=== PATIENT | male | born 1960 | race Caucasian/White ===

== ENCOUNTER 2020-07-24 17:35 | Outpatient (CLI) | payer OTHER, SELFPAY | END 2020-07-24 17:36 | disposition home or self-care (01) | LOC: ANHCOVIDVC 17:35 | PROVIDERS: PCP Internal Medicine | DX: Z23 Encounter for immunization (principal) | CPT/HCPCS: 0001A; 91300 ==

== ENCOUNTER 2020-08-14 17:27 | Outpatient (CLI) | payer OTHER, SELFPAY | END 2020-08-14 17:28 | disposition home or self-care (01) | LOC: ANHCOVIDVC 17:27 | PROVIDERS: PCP Internal Medicine | DX: Z23 Encounter for immunization (principal) | CPT/HCPCS: 0002A; 91300 ==

== ENCOUNTER 2021-09-24 01:13 | Day surgery (SDC) | payer OTHER, SELFPAY ==
[2021-07-18 13:09] VITALS: BMI 27.6
--- NOTE | 2021-07-28 12:49 | P.PNAN_ITS ---
Anes - Initial Pre Proc Eval Procedure: Operation Date: 07/30/21 09:00 Proposed Procedures p Screening Colonoscopy - Vince Medrano MD Date/Time: 07/28/21 12:49 Surgeon: Vince Medrano MD Pre Op Diagnosis: hx of colon polyps Patient Data Age: 61 Gender: M Height: 1.8 m Weight: 90 kg Allergies Allergy/AdvReac Type Severity Reaction Status Date / Time meperidine [From Demerol] Allergy Seizure Verified 07/18/21 13:05 Home Medications Medication Instructions Recorded Confirmed Type Vitamin D3 2,000 units PO DAILY 07/18/21 07/18/21 History atorvastatin 80 mg PO DAILY 07/18/21 07/18/21 History lansoprazole 30 mg PO DAILY 07/18/21 07/18/21 History lisinopril 10 mg PO DAILY 07/18/21 07/18/21 History montelukast 10 mg PO DAILY 07/18/21 07/18/21 History Results Review: All pre-operative results and documents have been reviewed as part of the pre-operative evaluation. [facility] [place] Past Medical History Medical History (Updated 07/28/21 @ 12:50 by Fernie Augustine DO) Diverticulitis GERD (gastroesophageal reflux disease) Hyperlipidemia Hypertension Social History Social History Smoking status: Never smoker Alcohol intake: current Alcohol use details: socially Substance use: never Substance use type: does not use Living arrangements: with family Spiritual care concerns: No Anes - Eval Final PreProcedure Day of Procedure 07/28/21 12:49 Patient weight: overweight Heart: regular rate and rhythm Lungs: clear to auscultation and normal air movement Airway: Mallampati scale class II Neurological: alert and oriented Last oral intake: >/= 8 hours ASA classification: II Emergent: no Anesthetic plan: proceed Anesthesia type and monitoring: general GIVS and standard monitoring Results Review: All pre-operative results and documents have been reviewed as part of the pre-operative evaluation. Informed Consent: The patient's anesthetic plan and its attendant risks and benefits were discussed with the patient/family/POA. Questions were solicited and answers provided to the satisfaction of the patient/family/POA.
--- NOTE | 2021-09-11 14:27 | PC.NURSE ---
Spoke with who states that she is angry because patient got sick off of his last bowel prep and she was unable to reach the department on a Friday. Informed patient that GI lab is not opened on weekends and should call the office number for doctor's exchange after hours. She states that the service was messy . Patient is due to take suprep tabs for next prep and instructions are not clear for them. Forwarded call to Darcie to call patients on 09/13/21 at 1430. Informed Irene, GI manager decision support of patient's 's concerns.
[2021-09-13 15:03] VITALS: BMI 27.6
[2021-09-24 09:43] VITALS: BP 146/79; PULSE 65; RESP 20; TEMP 36.3; O2SAT 100; BMI 26.6
[2021-09-24] MEDS: LACTATED RINGERS 1,000 ML 150 ML IV CONT (09:58)
--- NOTE | 2021-09-24 10:02 | WPDANESEPPF ---
Anes - Initial Pre Proc Eval Procedure: Operation Date: 09/24/21 11:00 Proposed Procedures p Screening Colonoscopy - Vince Medrano MD Date/Time: 09/24/21 10:02 Surgeon: Vince Medrano MD Pre Op Diagnosis: hx of colon polyps Patient Data Age: 61 Gender: M Height: 1.8 m Weight: 86.5 kg Last Vital Signs Temp 97.3 F L 09/24/21 09:43 Pulse 65 09/24/21 09:43 Resp 20 09/24/21 09:43 BP 146/79 H 09/24/21 09:43 Pulse Ox 100 09/24/21 09:43 Allergies Allergy/AdvReac Type Severity Reaction Status Date / Time meperidine [From Demerol] Allergy Seizure Verified 09/24/21 09:42 Home Medications Medication Instructions Recorded Confirmed Type Vitamin D3 2,000 units PO DAILY 07/18/21 09/13/21 History atorvastatin 80 mg PO DAILY 07/18/21 09/13/21 History lansoprazole 30 mg PO DAILY 07/18/21 09/13/21 History lisinopril 10 mg PO DAILY 07/18/21 09/13/21 History montelukast 10 mg PO DAILY 07/18/21 09/13/21 History Patient hx anesthesia problems: none Family hx anesthesia problems: none Results Review: All pre-operative results and documents have been reviewed as part of the pre-operative evaluation. [facility] Past Medical History Medical History (Updated 07/28/21 @ 12:50 by Fernie Augustine DO) Diverticulitis GERD (gastroesophageal reflux disease) Hyperlipidemia Hypertension Social History Social History Smoking status: Never smoker Alcohol intake: current Alcohol use details: socially Substance use: never Substance use type: does not use Living arrangements: with family Spiritual care concerns: No Anes - Eval Final PreProcedure Day of Procedure 09/24/21 10:02 Patient weight: overweight Heart: regular rate and rhythm Lungs: clear to auscultation Airway: Mallampati scale class II Neurological: alert and oriented Last oral intake: >/= 8 hours ASA classification: II Emergent: no Anesthetic plan: proceed Anesthesia type and monitoring: general GIVS and standard monitoring Results Review: All pre-operative results and documents have been reviewed as part of the pre-operative evaluation. Informed Consent: The patient's anesthetic plan and its attendant risks and benefits were discussed with the patient/family/POA. Questions were solicited and answers provided to the satisfaction of the patient/family/POA.
--- NOTE | 2021-09-24 10:10 | PM.HPGS ---
History of Present Illness History of Present Illness Consent: Risks, benefits, and alternatives have been discussed and questions answered. Patient agrees to proceed with procedure. Chief complaint: hx of colon polyps Narrative: Acosta Birch is a 61 year old male with colonoscopy more than 10 years ago. Review of Systems Constitutional: Constitutional: Denies headache(s) and Denies weakness Eyes: Eyes: Denies blurry vision ENT: Reports Normal hearing present, Denies headache(s) and Denies neck pain Cardiovascular: Cardiovascular: Denies chest pain and Denies dyspnea Respiratory: Respiratory: Denies dyspnea Gastrointestinal: Gastrointestinal: Reports no additional gastrointestinal complaints Genitourinary: Genitourinary: Denies dysuria Musculoskeletal: Musculoskeletal: Denies neck pain Integumentary/Breasts: Skin/Breast: Denies dry skin Neurologic: Reports Normal hearing present, Denies headache(s) and Denies weakness Psychiatric: Psychiatric: Denies anxiety Endocrine: Endocrine: Denies change in body appearance Hematologic/Lymphatic: Hematologic/Lymphatic: Denies easy bleeding Allergic/Immunologic: Allergic/Immunologic: Denies urticaria PMFSH Past Medical History Medical History (Updated 09/24/21 @ 10:10 by Vince Medrano MD) Colon cancer screening Diverticulitis GERD (gastroesophageal reflux disease) Hyperlipidemia Hypertension Social History Social History Smoking status: Never smoker Alcohol intake: current Alcohol use details: socially Substance use: never Substance use type: does not use Living arrangements: with family Spiritual care concerns: No Meds Home Medications and Allergies Home Medications Medication Instructions Recorded Confirmed Type Vitamin D3 2,000 units PO DAILY 07/18/21 09/13/21 History atorvastatin 80 mg PO DAILY 07/18/21 09/13/21 History lansoprazole 30 mg PO DAILY 07/18/21 09/13/21 History lisinopril 10 mg PO DAILY 07/18/21 09/13/21 History montelukast 10 mg PO DAILY 07/18/21 09/13/21 History Allergies Allergy/AdvReac Type Severity Reaction Status Date / Time meperidine [From Demerol] Allergy Seizure Verified 09/24/21 09:42 Vital Signs Vital Signs - 24 hr 09/24/21 09:43 Temperature 97.3 F L Pulse Rate 65 Respiratory Rate 20 Blood Pressure 146/79 H Pulse Oximetry 100 Exam Const: General: comfortable and no acute distress HENMT: General nose exam: Normal nares present Eyes: General: appearance normal, both eyes and all related structures Neck: Neck: no JVD Resp: Auscultation: clear to auscultation bilaterally Cardio: Rate: regular rate Rhythm: regular rhythm GI: Inspection: non-distended GI Palp: Yes Soft to palpation Skin: General skin exam: normal color Neuro: General: gait normal Speech: normal speech Extrem: General: normal to inspection Psych: Mental Status: mental status grossly normal Assessment and Plan Assessment and plan (1) Colon cancer screening: Code(s): Z12.11 - Encounter for screening for malignant neoplasm of colon Status: Acute Assessment and Plan: colonoscopy
[2021-09-24 10:27] VITALS: BP 105/68; PULSE 63; RESP 16; O2SAT 99
[2021-09-24 10:37] VITALS: BP 130/84; PULSE 58; RESP 12; O2SAT 100
[2021-09-24 10:47] VITALS: BP 132/82; PULSE 57; RESP 18; O2SAT 100
== END 2021-09-24 11:03 | disposition home or self-care (01) ==
PROVIDERS: PCP Internal Medicine; Visit Provider Internal Medicine Gastroenterology
PROC: 0DJD8ZZ Inspection of Lower Intestinal Tract, Via Natural or Artificial Opening Endoscopic (ICD-10-PCS; CPT 45378; principal; 2021-09-24 11:00)
DX: Z12.11 Encounter for screening for malignant neoplasm of colon (principal); D12.2 Benign neoplasm of ascending colon; D12.4 Benign neoplasm of descending colon; K57.30 Diverticulosis of large intestine without perforation or abscess without bleeding; K64.8 Other hemorrhoids; I10 Essential (primary) hypertension; E78.5 Hyperlipidemia, unspecified; K21.9 Gastro-esophageal reflux disease without esophagitis
CPT/HCPCS: 45385; 88305; J2704; J7120

== ENCOUNTER → 2021-12-05 08:11 | Outpatient (CLI) | payer OTHER, SELFPAY ==
--- NOTE | ~2021-12-05 | MR_ITS ---
EXAMINATION: MR shoulder RT wo con DATE: 12/05/2021 08:48 INDICATION: Nontraumatic incomplete tear of the right rotator cuff. One and a half months of right sh oulder pain. TECHNIQUE: Magnetic resonance imaging (MRI) of the right shoulder was performed without intravenous c ontrast. Sequences included axial PD-weighted FS FSE, coronal oblique PD-weighted FS FSE, coronal obl ique T2-weighted FS FSE, sagittal PD-weighted FS FSE, and sagittal T1-weighted SE. COMPARISON: None. FINDINGS: Coracoacromial arch: The acromion undersurface is curved in morphology (type II) with mild anterior downsloping. The corac oacromial ligament is normal. Mild acromioclavicular osteoarthritis. Rotator cuff: Mild tendinopathy of the supraspinatus and anterior infraspinatus tendons without tears. The teres mi nor tendon is normal. Mild subscapularis tendinopathy with partial-thickness intrasubstance tear posi tioned between the portion of the tendon attached to a lesser tuberosity and the more superficial por tion of the tendon which is attached to the intact transverse humeral ligament. The tear extends appr oximately 5 mm medially from the lateral margin of the lesser tuberosity footplate. Biceps tendon, glenoid labrum and glenohumeral cartilage: Moderate tendinopathy of the long head biceps tendon with longitudinal split tear extending in the ex tra articular portion of the tendon at the level the caudal aspect of the intertubercular groove and extending into the intra-articular portion of the tendon. Glenoid labrum is normal. Glenohumeral cart ilage is normal. Fluid: Prominent increased fluid in the long head biceps tendon sheath which is disproportionate to the smal l glenohumeral joint effusion which is suggestive of bicipital tenosynovitis. No loose osteochondral bodies. No abnormal increased fluid signal in the subacromial/subdeltoid bursa to suggest bursitis. Bones: Bone alignment is normal. Normal marrow signal with no fracture or pathologic marrow replacing proces s. IMPRESSION: 1. Mild rotator cuff tendinopathy with small mild intrasubstance tear along the superolateral lesser tuberosity footplate of the subscapularis tendon. 2. Mild bicipital tenosynovitis with moderate tendinopathy and longitudinal split tearing of the long head biceps tendon. 3. Small right glenohumeral joint effusion. Reviewed, dictated and finalized at location A. IMPRESSION: 1. Mild rotator cuff tendinopathy with small mild intrasubstance tear along the superolateral lesser tuberosity footplate of the subscapularis tendon. 2. Mild bicipital tenosynovitis with moderate tendinopathy and longitudinal spl it tearing of the long head biceps tendon. 3. Small right glenohumeral joint effusion.
== END ==
PROVIDERS: PCP Internal Medicine
DX: M75.111 Incomplete rotator cuff tear or rupture of right shoulder, not specified as traumatic (principal); S46.119A Strain of muscle, fascia and tendon of long head of biceps, unspecified arm, initial encounter; X58.XXXA Exposure to other specified factors, initial encounter; M75.21 Bicipital tendinitis, right shoulder; M25.411 Effusion, right shoulder
CPT/HCPCS: 73221

== ENCOUNTER 2022-09-11 14:52 | Outpatient (CLI) | payer OTHER, SELFPAY ==
--- NOTE | 2022-09-11 | ECHO_ITS ---
Patient Info Name: Emir Birch Age: 62 years : 1960 Gender: Male Ht: 71 in Wt: 190 lbs BSA: 2.09 m2 HR: 78 bpm BP: 134 / 96 mmHg Technical Quality: Fair Exam Date: 09/11/2022 3:13 PM Exam Location: [facility] Patient Status: Outpatient Admit Date: 09/11/2022 Staff Ordering Physician: Tacho Henderson MD Attending Provider: Tacho Henderson MD Referring Physician: Katerin MURPHY; Exam Type: CA echo doppler color flow Study Info Indications - PALPITATIONS Complete two-dimensional, color flow and Doppler transthoracic echocardiogram is performed. Summary 1. Complete two-dimensional, color flow and Doppler transthoracic echocardiogram is performed. 2. Left ventricular chamber dimension is normal. 3. Left ventricular systolic function is normal, estimated at 60-65%. 4. The left ventricular diastolic function is normal. 5. The aortic valve is bicuspid. 6. There is moderate aortic valve sclerosis. 7. There is mild aortic valve stenosis with a peak velocity of 285 cm/s, mean gradient of 17 mmHg, and aortic valve area of 1.9 cm2. 8. There is trace aortic valve regurgitation. 9. The mitral valve has mild calcified annulus. 10. No pulmonary hypertension, estimated pulmonary arterial systolic pressure is 26 mmHg. 11. There is trace pulmonic regurgitation. Left Ventricle Left ventricular chamber dimension is normal. Left ventricular systolic function is normal, estimated at 60-65%. The left ventricular diastolic function is normal. Right Ventricle Right ventricular systolic function is normal and with normal TAPSE 2.6 cm. Right ventricular chamber dimension is normal. Left Atria Left atrial chamber dimension is normal. Right Atria Right atrial chamber dimension is normal. Aortic Valve The aortic valve is bicuspid. There is moderate aortic valve sclerosis. There is mild aortic valve stenosis with a peak velocity of 285 cm/s, mean gradient of 17 mmHg, and aortic valve area of 1.9 cm2. There is trace aortic valve regurgitation. Pulmonic Valve There is trace pulmonic regurgitation. Mitral Valve The mitral valve has mild calcified annulus. There is no mitral valve stenosis. There is no mitral valve regurgitation. Tricuspid Valve There is no tricuspid valve regurgitation. No pulmonary hypertension, estimated pulmonary arterial systolic pressure is 26 mmHg. Pericardium/Pleural There is no pericardial effusion. Inferior Vena Cava Normal inferior vena cava with >50% collapse upon inspiration consistent with normal right atrial pressure, 5 mmHg. Aorta The aortic root size at the sinus of Valsalva is normal. Left Ventricular Outflow Tract Name Value Normal LVOT 2D LVOT Diameter 2.1 cm LVOT Doppler LVOT Peak Gradient 8 mmHg LVOT Mean Gradient 5 mmHg LVOT VTI 31 cm LVOT VTI/AV VTI Ratio 0.6 LVOT Stroke Volume 102 ml LVOT CO 21.1 l/min LVOT CI 10.1 l/min/m2 Pulmonic Valve Name
== END 2022-09-11 14:53 | disposition home or self-care (01) ==
PROVIDERS: PCP Internal Medicine; Visit Provider Internal Medicine
DX: R00.2 Palpitations (principal); I35.0 Nonrheumatic aortic (valve) stenosis
CPT/HCPCS: 93306

== ENCOUNTER 2023-07-07 07:31 | Outpatient (CLI) | payer OTHER, SELFPAY ==
--- NOTE | 2023-07-07 | ECHO_ITS ---
Patient Info Name: Acosta Birch Age: 63 years : 1960 Gender: Male Ht: 71 in Wt: 185 lbs BSA: 2.06 m2 HR: 71 bpm BP: 180 / 103 mmHg Heart Rhythm: Sinus Rhythm Technical Quality: Good Exam Date: 07/07/2023 8:03 AM Exam Location: Echo Lab Patient Status: Outpatient Admit Date: 07/07/2023 Staff Ordering Physician: Tacho Henderson MD Registered Radiologic Technologist: Suzanne Pickett RDCS Attending Provider: Stormy*, Tacho Choi MD Referring Physician: Katerin MURPHY; Exam Type: CA echo doppler color flow Study Info Indications R00.2 - Palpitations Complete two-dimensional, color flow and Doppler transthoracic echocardiogram is performed. Summary 1. Complete two-dimensional, color flow and Doppler transthoracic echocardiogram is performed. 2. Left ventricular hypertrophy with good systolic function and grade 1 diastolic noncompliance. 3. Mildly enlarged left atrium. 4. Trileaflet aortic valve with heavy sclerosis of the right coronary cusp which is largely immobilized. Overall no significant stenosis. Left Ventricle Left ventricular chamber dimension is normal. Left ventricular systolic function is normal, estimated at 65-70%. There is moderate concentric increased left ventricular wall thickness. The left ventricular diastolic function is grade I diastolic dysfunction. Right Ventricle Right ventricular chamber dimension is normal. Left Atria Left atrial chamber dimension is mildly enlarged. Right Atria Right atrial chamber dimension is normal. Aortic Valve The aortic valve is trileaflet. There is severe aortic valve sclerosis. There is mild aortic valve stenosis with a peak velocity of 280 cm/s, mean gradient of 17 mmHg, and aortic valve area of 2.0 cm2. There is trace aortic valve regurgitation. Pulmonic Valve The pulmonic valve is not well visualized. Mitral Valve The mitral valve has normal leaflets. Tricuspid Valve The tricuspid valve leaflets are normal. Pericardium/Pleural The pericardium appears normal. Aorta The aortic root size at the sinus of Valsalva is normal. Left Ventricular Outflow Tract Name Value Normal LVOT 2D LVOT Diameter 2.1 cm LVOT Doppler LVOT Peak Gradient 8 mmHg LVOT Mean Gradient 4 mmHg LVOT VTI 34 cm LVOT VTI/AV VTI Ratio 0.6 LVOT Stroke Volume 113 ml LVOT CO 6.5 l/min LVOT CI 3.2 l/min/m2 Pulmonic Valve Name Value Normal RVOT Doppler RVOT Peak Gradient 3 mmHg PV Doppler PV Peak Gradient 4 mmHg Mitral Valve Name Value Normal
== END 2023-07-07 07:32 | disposition home or self-care (01) ==
LOC: ANHCARD 07:32
PROVIDERS: PCP Internal Medicine; Visit Provider Internal Medicine
DX: R00.2 Palpitations (principal)
CPT/HCPCS: 93306